=== PATIENT | female | born 1955 | race Caucasian/White ===

== ENCOUNTER 2021-06-07 14:16 | Emergency (ER) | payer OTHER ==
[2021-06-07 14:40] VITALS: TEMP 98.2; BMI 27.3
[2021-06-07] MEDS ORDERED: SILVER SULFADIAZINE 1% TOP CREAM 50 GM JAR TP ONE ×2 (14:47→14:52)
[2021-06-07] MEDS ORDERED: DALBAVANCIN HCL 1,500 MG in DEXTROSE 5%-WATER - 500 ML IVPB ONE (14:47)
[2021-06-07] MEDS ORDERED: DALBAVANCIN HCL 500 MG VIAL (RESTRICTED TO ID ONLY) IVPB ONE (15:28)
[2021-06-07 17:31] VITALS: BP 108/56; PULSE 89
== END 2021-06-07 17:29 | disposition home or self-care (01) ==
LOC: JER 14:16
DX: L03.116 Cellulitis of left lower limb (principal); S90.822A Blister (nonthermal), left foot, initial encounter
CPT/HCPCS: 73610-TC-LT-FY; 73630-TC-LT; 96365; 99284-25; J0875

== ENCOUNTER 2022-08-31 14:05 | Inpatient (IN) | payer OTHER, MEDICARE ==
[2022-08-31 14:16] VITALS: BMI 27.3
[2022-08-31] MEDS ORDERED: SODIUM CHLORIDE 1,973 ML IV ONE (14:58)
[2022-08-31] MEDS ORDERED: VANCOMYCIN 1,000 MG in DEXTROSE 5%-WATER - 250 ML IVPB ONE (15:00)
[2022-08-31] MEDS ORDERED: MEROPENEM 1 GM in DEXTROSE 5%-WATER 100 ML IVPB ONE (15:01)
[2022-08-31] MEDS ORDERED: VANCOMYCIN/WATER 1250 MG 1,250 MG/250 ML BAG IVPB ONE (15:10)
[2022-08-31] MEDS ORDERED: MEROPENEM 1 GM VIAL (RESTRICTED TO ID) IVPB ONE ×2 (15:11→23:30)
[2022-08-31] MEDS ORDERED: VANCOMYCIN/WATER FOR INJ (PEG) 1,000 MG/200 ML BAG IVPB ONE (15:30)
[2022-08-31] MEDS ORDERED: VANCOMYCIN 1 GM PREMIX - 1 GM/200 ML BAG IVPB ONE (15:36)
[2022-08-31 15:50] LABS: VENOUS BASE EXCESS -1.6 mmol/L (-2-2); VENOUS O2 SATURATION 78.6 % (70-80); VENOUS PCO2 36.9 mmHg (38-52); VENOUS PH 7.406 (7.310-7.410)
[2022-08-31 15:52] LABS: BASO % 0.7 % (0-2.0); EOS % 3.9 % (0-4.5); HEMATOCRIT 34.9 % (32.4-45.2); HEMOGLOBIN 11.6 GM/dL (10.7-15.3); LYMPH % 15.5 % (8-40); MCH 30.7 pg (25.7-33.7); MCHC 33.3 g/dl (32.0-36.0); MEAN CELL VOLUME 92.1 fl (80-96); MEAN PLT VOLUME 7.4 fl (7.5-11.1); MONO % 9.4 % (3.8-10.2); NEUT % 70.5 % (42.8-82.8); PLATELET COUNT 320 10^3/uL (134-434); RBC 3.79 M/mm3 (3.60-5.2); WHITE BLOOD COUNT 7.1 K/mm3 (4.0-10.0)
[2022-08-31 16:00] LABS: INR 1.15 (0.83-1.09); PROTHROMBIN TIME (PATIENT) 13.3 SEC (9.7-13.0)
[2022-08-31 16:03] LABS: ACTIVATED PTT 32.3 SECONDS (25.2-36.5)
[2022-08-31 16:13] LABS: CALCIUM 9.6 mg/dL (8.5-10.1)
[2022-08-31 16:14] LABS: ALBUMIN 3.2 g/dl (3.4-5.0)
[2022-08-31 16:18] LABS: TOT PROT 7.4 g/dl (6.4-8.2)
[2022-08-31 16:19] LABS: BILIRUBIN,TOTAL 0.5 mg/dL (0.2-1)
[2022-08-31 16:33] LABS: LACTIC ACID 2.4 mmol/L (0.4-2.0)
[2022-08-31 16:37] LABS: EPI CELLS 20 /uL (0-25.1); HYALINE CASTS 0 /uL (0-3.1); PH,URINE 6.5 (5.0-8.0); URINE APPEARANCE CLEAR; URINE BACTERIA 309 /uL (0-1359); URINE BILIRUBIN NEGATIVE (NEGATIVE); URINE COLOR YELLOW; URINE GLUCOSE (UA) NEGATIVE (NEGATIVE); URINE KETONE TRACE (NEGATIVE); URINE LEUK ESTERASE NEGATIVE (NEGATIVE); URINE NITRITE NEGATIVE (NEGATIVE); URINE PROTEIN 1+ (NEGATIVE); URINE RBC 27 /uL (0-23.9); URINE UROBILINOGEN 0.2 mg/dL (0.2-1.0); URINE WBC 9 /uL (0-25.8)
[2022-08-31] MEDS ORDERED: ACETAMINOPHEN 325 MG TABLET (FP) PO PRN (21:17)
[2022-08-31] MEDS ORDERED: ATORVASTATIN CA 10 MG TABLET (FP) ONE (23:29)
[2022-08-31] MEDS ORDERED: HEPARIN NA (PORCINE) 5,000 UNITS/ML 1ML VIAL ONE (23:30)
[2022-08-31] MEDS: HEPARIN NA (PORCINE) 5,000 UNITS/ML 1ML VIAL SQ SCH (23:37)
[2022-08-31] MEDS: ATORVASTATIN CA 10 MG TABLET (FP) PO SCH (23:37)
[2022-09-01] MEDS: MEROPENEM 1 GM in DEXTROSE 5%-WATER 100 ML IVPB SCH ×2 (01:00→16:34)
[2022-09-01] MEDS ORDERED: ACETAMINOPHEN 325 MG TABLET (FP) ONE (03:33)
[2022-09-01] MEDS ORDERED: MECLIZINE HCL 12.5 MG TABLET PO PRN (07:51)
[2022-09-01 07:56] LABS: N-TERMINAL BNP 62.3 pg/ml (5-125)
[2022-09-01 08:09] LABS: BASO % 1.1 % (0-2.0); EOS % 3.3 % (0-4.5); HEMATOCRIT 30.9 % (32.4-45.2); HEMOGLOBIN 10.3 GM/dL (10.7-15.3); LYMPH % 17.1 % (8-40); MCH 30.9 pg (25.7-33.7); MCHC 33.3 g/dl (32.0-36.0); MEAN CELL VOLUME 92.7 fl (80-96); MEAN PLT VOLUME 7.4 fl (7.5-11.1); MONO % 9.9 % (3.8-10.2); NEUT % 68.6 % (42.8-82.8); PLATELET COUNT 327 10^3/uL (134-434); RBC 3.33 M/mm3 (3.60-5.2); RDW 14.8 % (11.6-15.6); WHITE BLOOD COUNT 7.4 K/mm3 (4.0-10.0)
[2022-09-01 08:31] LABS: CALCIUM 8.5 mg/dL (8.5-10.1)
[2022-09-01 08:32] LABS: BLOOD UREA NITROGEN 9.6 mg/dL (7-18); MAGNESIUM 1.7 mg/dL (1.8-2.4)
[2022-09-01 08:35] LABS: CREATININE 0.9 mg/dL (0.55-1.3); PHOSPHOROUS 2.5 mg/dL (2.5-4.9)
[2022-09-01 08:40] LABS: N-TERMINAL BNP 221.3 pg/ml (5-125)
[2022-09-01] MEDS ORDERED: ASPIRIN 81 MG CHEWABLE TABLETS ONE (11:29)
[2022-09-01] MEDS ORDERED: HYDROCHLOROTHIAZIDE 25 MG TABLET (FP) ONE ×2 (11:29→12:06)
[2022-09-01] MEDS ORDERED: PANTOPRAZOLE 20 MG TABLET PO ONE (11:29)
[2022-09-01] MEDS ORDERED: LOSARTAN POTASSIUM 50 MG TABLET ONE (11:29)
[2022-09-01] MEDS ORDERED: CEFTRIAXONE 1 GM/50 ML BAG ONE (11:30)
[2022-09-01] MEDS ORDERED: DOXYCYCLINE HYCLATE 100 MG VIAL ONE (11:30)
[2022-09-01] MEDS ORDERED: HEPARIN NA (PORCINE) 5,000 UNITS/ML 1ML VIAL ONE (11:30)
[2022-09-01] MEDS: HEPARIN NA (PORCINE) 5,000 UNITS/ML 1ML VIAL SQ SCH ×2 (11:41→21:36)
[2022-09-01] MEDS: PANTOPRAZOLE 20 MG TABLET PO SCH (11:41)
[2022-09-01] MEDS: LOSARTAN POTASSIUM 50 MG TABLET PO SCH (11:41)
[2022-09-01] MEDS: ASPIRIN 81 MG CHEWABLE TABLETS PO SCH (11:41)
[2022-09-01] MEDS: CEFTRIAXONE 1 GM in DEXTROSE 5%-WATER - 50 ML IVPB SCH (11:42)
[2022-09-01] MEDS ORDERED: ALBUTEROL SO4 2.5/IPRATROPIUM 0.5 INH SOL 3 ML VIAL.NEB. NEB ONE (12:15)
[2022-09-01] MEDS: DOXYCYCLINE INJECTION 100 MG in DEXTROSE 5%-WATER 100 ML IVPB SCH ×2 (13:00→21:36)
[2022-09-01] MEDS: HYDROCHLOROTHIAZIDE 25 MG TABLET (FP) PO SCH (13:00)
[2022-09-01] MEDS: ALBUTEROL SO4 2.5/IPRATROPIUM 0.5 INH SOL 3 ML VIAL.NEB. NEB SCH ×2 (13:01→20:51)
[2022-09-01 20:45] LABS: HIV INTERPRETATION NEGATIVE (NEGATIVE)
[2022-09-01] MEDS ORDERED: ACETAMINOPHEN 1000 MG/100 ML BAG IVPB ONE (21:33)
[2022-09-01] MEDS ORDERED: LORATADINE 10 MG TABLET PO ONE (21:33)
[2022-09-01] MEDS: ATORVASTATIN CA 10 MG TABLET (FP) PO SCH (21:36)
[2022-09-01] MEDS ORDERED: ESCITALOPRAM OXALATE 20 MG TABLET PO SCH (22:00)
[2022-09-02] MEDS: ALBUTEROL SO4 2.5/IPRATROPIUM 0.5 INH SOL 3 ML VIAL.NEB. NEB SCH ×3 (07:31→16:33)
[2022-09-02 08:33] LABS: CALCIUM 9.4 mg/dL (8.5-10.1)
[2022-09-02 08:34] LABS: ALBUMIN 2.8 g/dl (3.4-5.0); BLOOD UREA NITROGEN 9.4 mg/dL (7-18)
[2022-09-02 08:36] LABS: CREATININE 0.9 mg/dL (0.55-1.3)
[2022-09-02 08:39] LABS: BILIRUBIN,TOTAL 0.5 mg/dL (0.2-1); TOT PROT 6.4 g/dl (6.4-8.2)
[2022-09-02 08:49] LABS: BASO % 0.9 % (0-2.0); HEMATOCRIT 29.4 % (32.4-45.2); HEMOGLOBIN 9.8 GM/dL (10.7-15.3); MCH 31.2 pg (25.7-33.7); MCHC 33.4 g/dl (32.0-36.0); MEAN CELL VOLUME 93.5 fl (80-96); MEAN PLT VOLUME 7.7 fl (7.5-11.1); NEUT % 61.1 % (42.8-82.8); PLATELET COUNT 355 10^3/uL (134-434); RBC 3.15 M/mm3 (3.60-5.2); RDW 14.8 % (11.6-15.6)
[2022-09-02] MEDS: DOXYCYCLINE INJECTION 100 MG in DEXTROSE 5%-WATER 100 ML IVPB SCH (09:58)
[2022-09-02] MEDS: HEPARIN NA (PORCINE) 5,000 UNITS/ML 1ML VIAL SQ SCH (09:58)
[2022-09-02] MEDS: PANTOPRAZOLE 20 MG TABLET PO SCH (09:59)
[2022-09-02] MEDS: ASPIRIN 81 MG CHEWABLE TABLETS PO SCH (09:59)
[2022-09-02] MEDS: LOSARTAN POTASSIUM 50 MG TABLET PO SCH (09:59)
[2022-09-02] MEDS: CEFTRIAXONE 1 GM in DEXTROSE 5%-WATER - 50 ML IVPB SCH (09:59)
[2022-09-02] MEDS: HYDROCHLOROTHIAZIDE 25 MG TABLET (FP) PO SCH (10:00)
[2022-09-02] MEDS ORDERED: FLUTICASONE PROP 0.05% 16 GM NASAL SPRAY NS SCH (10:00)
[2022-09-02] MEDS ORDERED: LACTOBACILLUS ACIDOPHILUS 1 TABLET PO SCH (13:00)
[2022-09-02 14:14] VITALS: RESP 20
[2022-09-02 15:45] VITALS: BP 122/69; PULSE 100; TEMP 98.6
[2022-09-03 20:11] LABS: CYCLIC CITRULLINE PEPTIDE AB 2 units (0-19)
== END 2022-09-02 17:43 | disposition short-term general hospital (02) | DRG 196 ==
LOC: SUPCPDRO 14:05 → JER 14:05 → JERBED 17:21 → J4W 09-01 16:20
PROVIDERS: ADMIT Internal Medicine; ATTEND Family Medicine
DX: J84.9 Interstitial pulmonary disease, unspecified (principal); J96.01 Acute respiratory failure with hypoxia; E87.1 Hypo-osmolality and hyponatremia; I10 Essential (primary) hypertension; E78.5 Hyperlipidemia, unspecified; Z86.73 Personal history of transient ischemic attack (TIA), and cerebral infarction without residual deficits; K21.9 Gastro-esophageal reflux disease without esophagitis; F41.9 Anxiety disorder, unspecified; J44.9 Chronic obstructive pulmonary disease, unspecified; R59.1 Generalized enlarged lymph nodes; Z87.891 Personal history of nicotine dependence; R91.1 Solitary pulmonary nodule
CPT/HCPCS: 0241U-QW; 36415; 71045-TC-FY; 71275-TC; 80048; 80053; 81003; 82550; 82728; 82803; 83540; 83550; 83605; 83615; 83735; 83880; 84100; 84484; 85025; 85379; 85610; 85651; 85730; 86038; 86140; 86200; 86225; 86431; 86480; 86850; 86900; 86901; 87040; 87086; 87389; 87899; 93005; 93010; 93306-TC; 94640; 99285-25; J1644; Q9967